=== PATIENT | male | born 1950 | race Caucasian/White ===

== ENCOUNTER 2016-11-24 08:21 | Inpatient (IN) | payer MEDICARE ==
--- NOTE | 2016-11-17 13:34 | NUR ---
JOINT CAMP: Patient attended [facility] joint camp, patient is having total knee replacement. Patient's DPOA is Yana Sweet [phone]. She will be his support upon arrival home and she will transport. Patient does not care for anyone else and [place]. Patient has never received home health services or Residential experience. Patient also has never been connected to outpatient physical therapy. Patient has bath bench and walker at home. Patient will need toilet riser and bedside commode.
[~2016-11-24] VITALS: Ht 185.4 cm; Wt 92.2 kg
[2016-11-24] VITALS (14 sets, daily range): BP systolic 109–128; BP diastolic 65–81; PULSE 56–73; RESP 12–19; O2SAT 94–100
[2016-11-24] MEDS: Vancomycin Inj 1,500 MG in 0.9% Sodium Chloride 500 ML IV SCH ×2 (06:00→08:50)
[~2016-11-24 08:21] MED LIST: CALC-140 PO; CeFAZolin 2 Gm/50 mL D5W IV Premix IV SCH; DILT120C86 PO; FLEC100T2 PO; GLUC1CAP8 PO; HYAL1CAP PO; Lactated Ringer's 1,000 ML IV SCH; NAPR220C16 PO; OMEG-38 PO; SERT50TA9 PO; TURM500C3 PO
[2016-11-24] MEDS ORDERED: Lactated Ringer's 1,000 ML IV ONE ×2 (08:22→12:48)
[2016-11-24] MEDS ORDERED: Magnesium Hydroxide 10 mL Oral Concentration PO PRN (10:00)
[2016-11-24] MEDS ORDERED: HYDROmorphone 0.5 mg/0.5 mL iSecure Syringe IVPUSH PRN (10:00)
[2016-11-24] MEDS ORDERED: Ondansetron 2 mg/mL 2 mL Inj IVPUSH PRN ×2 (10:00→11:40)
[2016-11-24] MEDS: 0.9% Sodium Chloride 1,000 ML IV SCH ×3 (10:00→20:00)
[2016-11-24] MEDS ORDERED: HYDROcodone-APAP 5-325 mg Tablet PO PRN (10:00)
[2016-11-24] MEDS ORDERED: Polyethylene Glycol (PEG) 17 Gm Powder PO PRN (10:00)
[2016-11-24] MEDS ORDERED: diphenhydrAMINE 25 mg Capsule PO PRN (10:00)
[2016-11-24] MEDS ORDERED: Acetaminophen IV 1,000 MG in IV Premix 1 EACH IV PRN ×2 (10:00→13:00)
[2016-11-24] MEDS ORDERED: Bupivacaine Liposome 1.3% 20 mL Inj INFILTRATE SCH (10:05)
[2016-11-24] MEDS ORDERED: Tranexamic Acid 100 mg/mL 10 mL Inj ONE ×2 (10:26)
[2016-11-24] MEDS ORDERED: 0.9% Sodium Chloride 100 ML ONE ×2 (10:26→10:27)
[2016-11-24] MEDS ORDERED: Bupivacaine Liposome 1.3% 20 mL Inj INFILTRATE ONE (11:17)
--- NOTE | 2016-11-24 11:17 | PCM.HPANE ---
Patient Data Date of Service: Nov 24, 2016 (0930) Surgeon Admitting Provider: Attending Provider:Ahsan Perea DO Primary Care Physician:Jb Baron MD Other Provider:Audrey Arzate Anesthesia Reason for Visit Left Knee Arthritis Ht/WT & BMI Height (Feet): 6 Height (Inches): 1.00 Weight (Kilograms): 88.3 Body Mass Index 25.00 Allergies Coded Allergies: benzocaine (Verified Allergy, Unknown, 11/20/16) Diabetes History Hx Diabetes?: No Medications Hypertension Medication: No Home Meds Incl Beta Ericka: No Reported Medications Turmeric Root Extract (Turmeric)500 Mg [id number] Mg PO BID 11/20/16 Sertraline HCl (Sertraline)50 Mg Jgksxn30 Mg PO DAILY 30 Days Ref 0 11/20/16 Naproxen Sodium 220 Mg Ndloxnt932 Mg PO BID PRN For Pain Ref 0 11/20/16 Hyalur AC/Chond Sul/Colg II/Aa (Hyaluronic Acid)1 Each Dvquotn06 Mg PO BID 11/20/16 Gluc [place]/MSM/Magnesium/Vit C (Glucosamine Complex-MSM Cap)1 Each Capsule1 Each PO BID 11/20/16 Flecainide Acetate 100 Mg Qpflmk100 Mg PO BID 11/20/16 [place]-3/Dha/Epa/Fish Oil (Fish Oil 1,000 mg Softgel)1 Each Capsule1 Each PO BID 11/20/16 Diltiazem ER 120 Mg Capsule.er120 Mg PO Q2DAY Ref 0 11/20/16 Calcium Carbonate/Vitamin D3 (Calcium + Vitamin D Tablet)1 Each Tablet1 Each PO DAILY 11/20/16 History History of ENT Problems?: No Hx of Heart Problems?: Yes Cardiovascular History: Positive for:: Atrial Fibrillation (paroxysmal) Irregular Heartbeat (PAF) Denies:: Hypertension Hx of Respiratory Problem?: Yes Respiratory History: Positive for:: Use of C-PAP Machine Hx Neurologic Problems?: No Hx of GI Problems?: No Hx of Problems?: No Hx Musculoskeletal Problems?: Yes Musculoskeletal History: Positive for:: Degenerative Joint Musculoskeletal Trauma (left knee current admission problem) Osteoarthritis Hx of Psycho/Social Problems?: Yes Psycho Social History: Positive for:: Hx Depression Hx Surgeries?: No (unknown) Hx Any Other Health Problems?: Yes Hx Diabetes: No Stop/Bang S-Snoring: Do You Snore Loudly: No T-Tired: feel tired, fatigued: No O-Obsered: Observed not breath: No P-Blood Pressure: treated: No B- Body Mass Index > 35 kg/m2: No A- Age over 50: Yes N- Neck Large Circumference: No G- Gender Male: Yes OLEGARIO Total Score: 2 Risk Assessment Category Category 1A: Patient has history of documented sleep apnea, and HAS NOT received any narcotic, sedative or anesthesia administration during this stay. Category 1B: Patient has history of documented sleep apnea, and HAS received any narcotic , sedative or anesthesia administration during this stay Category 2: Patient has SUSPECTED Obstructive Sleep Apnea, and HAS received any narcotic , sedative or anesthesia administration during this stay. Category 3: Patient has SUSPECTED Obstructive Sleep Apnea and HAS NOT received narcotic, sedative or anesthesia administration during this stay. Category 4: Outpatient in Procedural Areas with known sleep apnea or who screen positive for High Risk via the STOP/BANG questionnaire. Exam Exam Vital Signs Vital Signs Date Time Temp Pulse Resp B/P Pulse Ox O2 Delivery O2 Flow Rate FiO2 11/24/16 08:55 CPAP/BIPAP 11/24/16 08:54 36.3 56 16 125/81 99 Room Air General Appearance: Alert, Oriented X3, Cooperative, No Acute Distress HEENT/AIRWAY: MP 2 Lungs: Clear to Auscultation Heart: Exam Unremarkable Meds/Labs/Diagnostics Admission Meds Current Medications Vancomycin HCl 1500 mg/Sodium Chloride 500 ml @ 333.333 mls/hr PREOP IV Last administered on 11/24/16 08:50; Start 11/24/16 at 06:00; Stop 11/24/16 at 17:00 Lactated Ringer's (Lr) 1,000 ml @ ud STK-MED ONCE IV Last administered on 11/24 08:22; Start 11/24/16 at 08:22; Stop 11/24/16 at 08:23; Status DC Plan Impression Patient chart reviewed, patient interviewed and anesthestic plan with risks, benefits, and alternatives discussed, and informed consent obtained. NPO Status: 11/23 at 1900 ASA Physical Status: ASA2 Mod Systemic Disease Anesthetic Plan: Regional Block (fnb), SAB Bene/Risks/Altern/Consents: Yes HP Complete Prior to Induction: Yes Christ Herbert MD Nov 24, 2016 11:17
[2016-11-24] MEDS ORDERED: 0.9% Sodium Chloride 10 mL Inj INFILTRATE ONE (11:18)
[2016-11-24] MEDS ORDERED: Bupivacaine-MPF 0.5% W/EPI 30 mL Inj INFILTRATE ONE (11:19)
[2016-11-24] MEDS ORDERED: Lactated Ringer's 500 ML IV PRN (11:38)
[2016-11-24] MEDS ORDERED: Lactated Ringer's 1,000 ML IV SCH (11:38)
[2016-11-24] MEDS ORDERED: MetoCLOpramide 5 mg/mL 2 mL Inj IVPUSH PRN (11:40)
[2016-11-24] MEDS ORDERED: EPHEDrine Sulfate 50 mg/mL Inj IVPUSH PRN (11:40)
[2016-11-24] MEDS ORDERED: Phenylephrine 10,000 mCg/mL Inj IVPUSH PRN (11:40)
[2016-11-24] MEDS ORDERED: Dexamethasone 4 mg/mL Inj IVPUSH PRN (11:40)
[2016-11-24] MEDS ORDERED: HYDROmorphone 1 mg/mL Inj IVPUSH PRN (11:40)
[2016-11-24] MEDS ORDERED: fentaNYL-PF 50 mCg/mL 2 mL Inj IVPUSH PRN (11:40)
--- NOTE | 2016-11-24 13:53 | PCM.ANEP1 ---
Post Anesthesia Phase 1 PACU Phase 1 Assessment Date of Service: Nov 24, 2016 (4859) Vital Signs Vital Signs Date Time Temp Pulse Resp B/P Pulse Ox O2 Delivery O2 Flow Rate FiO2 11/24/16 13:45 36.4 64 18 117/65 94 Room Air 11/24/16 13:30 65 14 120/77 98 Room Air 11/24/16 13:25 65 13 122/70 98 Room Air 11/24/16 13:20 67 14 114/68 99 Room Air 11/24/16 13:15 67 18 123/69 100 Simple Mask 8 11/24/16 13:14 12 99 11/24/16 13:10 36.4 73 15 128/74 100 Simple Mask 8 11/24/16 08:55 CPAP/BIPAP 11/24/16 08:54 36.3 56 16 125/81 99 Room Air Anesthetic Administered: GA, Regional Block, SAB Level of Alertness: Awake, talking MCKAY's with Equal Strength: Yes Pain: No Nausea or Vomiting: No Oxygen Delivery: Room Air Lungs: Clear to Auscultation Dermatome Level: L3,4 (Thigh) Christ Herbert MD Nov 24, 2016 13:53
--- NOTE | 2016-11-24 13:54 | PCM.ANEP2 ---
Post Anesthesia Evaluation ASA/CMS Post Anesthesia VS in Patient's Normal Range?: Yes Resp Stable; Airway Patent?: Yes CV Function & Hydration Stable: Yes Mental Status Recovered?: Yes Pain control Satisfactory?: Yes N/V Control Satisfactory?: Yes Christ Herbert MD Nov 24, 2016 13:54
--- NOTE | 2016-11-24 14:14 | DRSVH ---
PROCEDURE: X-RAY LEFT KNEE, ONE OR TWO VIEWS ([id number]) INDICATIONS: 66 year-old male status post left knee joint replacement. TECHNIQUE: 2 postoperative view(s) of the knee acquired. COMPARISON: [facility], CR, XR KNEE ARTHRITIC SERIES LT, 10/22/2016, 12:54. FINDINGS: Bones: Patient is status post knee joint arthroplasty. Hardware components are in expected position s. Visualized bony structures are intact. Soft tissues: Overlying postoperative changes are noted, including intra-articular fluid and gas. IMPRESSION: Status post left knee arthroplasty, with hardware components in expected positions. Dictated by: Bruno Ontiveros M.D. on 11/24/2016 at 14:12 Approved by: Bruno Ontiveros M.D. on 11/24/2016 at 14:13
--- NOTE | 2016-11-24 14:24 | OP ---
[address] [address] OPERATIVE REPORT PATIENT: ANTON TREVIZO : 1950 MR#: [id number] ADMIT: 11/24/2016 JOB ID: [id number] DATE OF SURGERY: 11/24/2016 PREOPERATIVE DIAGNOSIS(ES): Left knee degenerative joint disease. POSTOPERATIVE DIAGNOSIS(ES): Left knee degenerative joint disease. PROCEDURE: Left total knee arthroplasty. SURGEON: Ahsan Perea D.O. ALCOHOLISM WORKER: Kassandra Elkins PA-C. ANESTHESIA: Spinal with general and nerve block. INDICATIONS: The patient is a 66-year-old male with left knee severe degenerative arthritis with failed conservative measures and wished to proceed with a left total knee arthroplasty. We discussed risks, benefits, and possible complications of surgery. All questions were answered and he wished to proceed. A assembler surgical garment was required for the successful completion of this procedure. PROCEDURE IN DETAIL: The patient is brought to the operating room. He was given a preoperative antibiotic and 1 g TXA preop. He is given an adductor canal block as well as a spinal. However, he continued to have motor control of his leg and seemed to have some restless leg type symptoms despite the spinal and he was, therefore, converted to a general anesthetic. A time-out was performed and the left knee was sterilely prepped and draped. A tourniquet was used for hemostasis. An incision was made longitudinally over the anteromedial knee and dissection was carefully carried through the subcutaneous tissue. Electrocautery was used for hemostasis. A split was then made in the quad tendon leaving a cuff of tissue for repair. This was taken along the medial retinaculum and the proximal medial tibial face. A small portion of the fat pad was removed and the patella was then everted. The femur was then instrumented with the intramedullary drill and then a guide everett with a 5 degree distal valgus cut angle was chosen and 10 mm was planned for resection. The block was pinned into position. The cut was performed the next the tibia was addressed and an extramedullary tibial cutting guide was placed parallel to the long axis of the tibia, pinned into position and then the tibial cut was performed complete with an osteotome. The femur was then sized, and felt to be a size 8. When the 3 degree external rotation guide was placed and pins were placed, the distal femoral cuts were then completed and the tibia was sized, felt to be a size 7. The notch cut was then made using the notch cutting guide template and the knee was then trialed we trialed with a 5, 6, 7, 8 and 10 polys and did some additional medial release as he was quite tight medially, ultimately deciding on the 8 poly with a rotating platform. The tibia was drilled and punched. The femur was drilled the patella was resurfaced with a free hand type technique, cut from initial thickness of 30 to a thickness of 16. A 41 mm patellar button was drilled for and trialed, had excellent tracking. All bony surfaces were washed and dried, and the components were then cemented into position beginning with the [employer] rotating platform 7 tibia followed by the [employer] posterior stabilized 8 femur and an 8 mm thickness poly with a 41 mm patellar button. All excess cement was removed. The knee was held in full extension while the cement was allowed to polymerize. The tourniquet was then let down and a second gram of TXA was infused. Electrocautery was used for hemostasis. The wound was copiously irrigated and then closed with #1 Surgilon to repair the quad tendon and medial retinaculum. The remainder of the retinaculum was repaired with 0-Vicryl. A mixture of Exparel, saline and Marcaine with epi was injected posteriorly into the capsule as well as into the soft tissues anteriorly in the knee. The subcu was closed with 2-0 Vicryl and the skin was closed with a running 3-0 V lock suture. Sterile dressings were applied. Patient tolerated the procedure well. Blood loss was 150 cc. POSTOPERATIVE PROTOCOL: Have the patient weightbear to tolerance. Use a walker for ambulation. Will use Lovenox for DVT prophylaxis and he was given a prescription for both [place] and Percocet as he has had luck with one during the day and one for nighttime use.
[2016-11-24] MEDS: Sodium Chloride LOK Flush 10 mL Syringe IV SCH (16:30)
[2016-11-24] MEDS ORDERED: Bupiv-Spinal 0.75%/Dex 8.25% 2 mL Inj ONE (17:46)
[2016-11-24] MEDS ORDERED: Propofol 10,000 mCg/mL 20 mL Inj ONE (17:46)
[2016-11-24] MEDS ORDERED: EPHEDrine/NS 5 mg/mL 5 mL Syringe ONE (17:46)
[2016-11-24] MEDS ORDERED: Ondansetron 2 mg/mL 2 mL Inj ONE (17:46)
[2016-11-24] MEDS ORDERED: fentaNYL-PF 50 mCg/mL 2 mL Inj ONE (17:46)
--- NOTE | 2016-11-24 19:28 | NUR ---
Arrival to Floor Patient arrived to floor alert and oriented. Patient states that pain is within tolerable level. Patient has good capillary refill to surgical site, sensation throughout effected extremity, good dorsal pulse, able to move toes and surgical dressing clean, dry and intact. Ordered fluids hung, SCDs placed on patient. Ice applied to knee. Patient denies nausea, able to tolerate dinner well. Care is ongoing.
[2016-11-24] MEDS: Senna-Docusate 8.6-50 mg Tablet PO SCH (20:30)
[2016-11-24] MEDS: CeFAZolin Inj 2 GM in Dextrose 5% 50 ML IV SCH (20:34)
[2016-11-24] MEDS: HYDROcodone-APAP 7.5-325 mg Tablet PO PRN (22:42)
[2016-11-24] MEDS: Diltiazem CD 120 mg ER24 Capsule PO SCH (23:22)
[2016-11-25] MEDS: Sodium Chloride LOK Flush 10 mL Syringe IV SCH ×4 (00:27→19:51)
[2016-11-25 00:35] VITALS: BP 104/64; PULSE 71; RESP 16; O2SAT 96
[2016-11-25] MEDS: HYDROcodone-APAP 7.5-325 mg Tablet PO PRN (02:00)
--- NOTE | 2016-11-25 02:17 | NUR ---
pain / activity patient moving very well. able to ambulate to the restroom with fww sba. excellent cms to left leg. minimal discomfort to left knee. patient complains of left hip discomfort. rates 4 medicated with hyrocodone as documented. given ice pack care ongoing.
[2016-11-25] MEDS: CeFAZolin Inj 2 GM in Dextrose 5% 50 ML IV SCH (02:41)
[2016-11-25 04:21] VITALS: BP 110/72; PULSE 75; RESP 16; O2SAT 95
[2016-11-25] MEDS: hydrOXYzine Pamoate 25 mg Capsule PO PRN ×3 (05:38→20:45)
[2016-11-25] MEDS: Ketorolac 15 mg/mL Inj IVPUSH PRN ×2 (05:39→22:24)
[2016-11-25] MEDS: oxyCODONE-Acetamin 5-325 mg Tablet PO PRN ×4 (05:39→20:45)
[2016-11-25] MEDS ORDERED: CeFAZolin Inj 2 GM in IV Premix 1 EACH IV ONE (06:00)
[2016-11-25] MEDS: 0.9% Sodium Chloride 1,000 ML IV SCH ×2 (06:00→14:37)
[2016-11-25 07:18] LABS: BASOPHILS % (AUTO) 0.1 % (0-3); EOSINOPHILS % (AUTO) 0.1 % (0-5); MONOCYTES % (AUTO) 9.1 % (4-12); Mean Corpuscular Hemoglobin 28.5 pg (27.0-35.0); Mean Corpuscular Volume 83.7 fL (81-100); NEUTROPHILS % (AUTO) 85.6 % (40-74); Platelet Count 201 bil/L (150-400)
[2016-11-25] MEDS ORDERED: Influenza (Adult) Vaccine 0.5 mL Syringe IM ONE (08:30)
[2016-11-25 09:33] VITALS: BP 94/56; PULSE 72
[2016-11-25] MEDS: Senna-Docusate 8.6-50 mg Tablet PO SCH ×2 (09:36→19:50)
--- NOTE | 2016-11-25 09:57 | NUR ---
Evaluation completed. Please go to "Notes" then click on "Assessments and Notes" (bottom left corner of screen). Then select appropriate discipline tab on top of screen.
--- NOTE | 2016-11-25 10:33 | PCM.PNORTH ---
Subjective Date of Service: Nov 25, 2016 Visit Information: Reason for Visit Left Knee Arthritis Surgery/Surgery Date Post-Op Day # Date of Admission: Nov 24, 2016 at 17:45 Hospital Day # Subjective s/p day 1 left total knee arthroplasty. Patient states he is doing really well and happy with his pain control. Optimistic about moving with physical therapy and happy with his surgery. Postop General: No Complaints, No Shortness of Breath, No Chest Pain Objective Exam Objective Patient is alert and oriented 3. Answering questions appropriately. Sitting up in bed and not in any acute distress today. Dressing is clean dry and intact. Patient able to wiggle toes. Calf is soft and non-tender, pulses intact, sensation is full. Vital Signs and I/O Vital Sign - Last Date Time Temp Pulse Resp B/P Pulse Ox O2 Delivery O2 Flow Rate FiO2 11/25/16 09:33 72 94/56 11/25/16 04:21 36.6 16 95 Room Air 11/24/16 13:15 8 Intake and Output 11/24/16 11/24/16 11/25/16 Cumulative From/Thru 15:00 23:00 07:00 11/20/16 10:03 - 11/25/16 06:04 Intake Total 2260 ml 400 ml 1672 ml 4332 ml Output Total 150 ml 0 ml 1200 ml 1350 ml Balance 2110 ml 400 ml 472 ml 2982 ml Intake Oral 400 ml 600 ml 1000 ml IV Total 2260 ml 1072 ml 3332 ml Output Urine Total 0 ml 1200 ml 1200 ml Estimated Blood Loss 150 ml 150 ml # Bowel Movements 0 0 Lab & Micro Results Laboratory Tests Test 11/25/16 06:16 11/25/16 06:46 Sodium Level 139mEq/L (134-144) Potassium Level 4.0mEq/L (3.5-5.2) Chloride Level 102mEq/L (97-108) Carbon Dioxide Level 23mmol/L (18-29) Blood Urea Nitrogen 17mg/dL (8-27) Creatinine 0.97mg/dL (0.76-1.27) Estimat Glomerular Filtration Rate 82mL/min (>59) Glucose Level 112mg/dL (60-99) Calcium Level 8.9mg/dL (8.5-10.1) White Blood Count 11.0th/mm3 (3.8-10.1) Red Blood Count 4.11mil/mm3 (4.40-5.80) Hemoglobin 11.7g/dL (13.8-17.2) Hematocrit 34.4% (41.0-50.0) Mean Corpuscular Volume 83.7fL (81-100) Mean Corpuscular Hemoglobin 28.5pg (27.0-35.0) Mean Corpuscular Hemoglobin Concent 34.0% (32.0-37.0) Red Cell Distribution Width 15.0% (12.3-15.4) Platelet Count 201bil/L (150-400) Neutrophils (%) (Auto) 85.6% (40-74) Lymphocytes (%) (Auto) 4.8% (14-46) Monocytes (%) (Auto) 9.1% (4-12) Eosinophils (%) (Auto) 0.1% (0-5) Basophils (%) (Auto) 0.1% (0-3) Result Diagram: 11/25/16 0646 11/25/16 0616 Assessment & Plan Impression Status post day #1 left totally arthroplasty. Patient doing very well. Pain well controlled. Problems: Plan Patient will continue to work with physical therapy. Patient will remain weightbearing as tolerated. Patient will take Lovenox 40 mg subcutaneous daily for 14 days, then transition to aspirin 325 mg twice a day for 4 more weeks for DVT prophylaxis. Patient will utilize hydrocodone and/or oxycodone for pain control while here in the hospital and will be discharged with pain medicine as patient has done well with one at night and the other in the daytime in the past. Dressing will be changed tomorrow by RAFAELA. Anticipate that patient will stay in the hospital for 1 to possibly 2 more days and be discharged home as soon as ambulating well with physical therapy. Cornell Danielson PA-C Nov 25, 2016 10:33
--- NOTE | 2016-11-25 11:26 | NUR ---
Social Work-initial assessment/ readiness for discharge: Data:See initial assessment. Pt is a 66 y/o male who was admitted on 11/24/16 for left knee per H&P. Pt's insurance is [employer] and PCP is Jb Baron MD. EMR reviewed. Pt's readmission score is 2. SW met with pt and Yana at bedside, SW role explained. Pt is alert and oriented x3. Pt resides at home with his in [place] where he remains independent with ADLs. Pt drives and does not normally use any DME. Pt has fww for home use. Pt has no HH or SNF history. Pt has no jail care or VA benefits. SW discussed DPOA/ advanced directive, pt and state they have completed this. PT has seen pt and recommended home with outpt PT services.Pt has outpt PT all set up. Pt's to provide transport home. No anticipated discharge needs. SW will continue to follow if needs arise. Assessment:Pt who would benefit from outpt PT. Plan:Pt to discharge home when medically stable via POV. Pt to have outpt PT services. No anticipated discharge needs. SW will continue to follow if needs arise. OMI Landeros Addendum: 11/25/16 at 1223 by AKIL MARI Amended: Links added.
--- NOTE | 2016-11-25 11:57 | NUR ---
Evaluation completed. Please go to "Notes" then click on "Assessments and Notes" (bottom left corner of screen). Then select appropriate discipline tab on top of screen.
[2016-11-25 13:46] VITALS: BP 117/73; PULSE 69; RESP 16; O2SAT 96
--- NOTE | 2016-11-25 18:17 | NUR ---
Pain/activity Rates pain 3-4/10 and medicated with 5/325 Percocet q 4hr prn with good effect. 25 mg Vistaril also given prn for breakthrough and spasms. Cleared by PT for independent ambulation in room. Also walked in hallway with PT.
[2016-11-25 19:40] VITALS: BP 116/70; PULSE 75; RESP 18; O2SAT 92
[2016-11-25] MEDS: Diltiazem CD 120 mg ER24 Capsule PO SCH (19:50)
[2016-11-25 21:19] LABS: APPEARANCE,URINE CLEAR (CLEAR,HAZY); COLOR,URINE YELLOW (YELLOW); OCCULT BLOOD,URINE NEGATIVE (NEGATIVE); PH,URINE 6.5 (5.0-8.0); UROBILINOGEN,URINE NORMAL (NORMAL)
[2016-11-26] MEDS: oxyCODONE-Acetamin 5-325 mg Tablet PO PRN ×3 (01:05→17:25)
[2016-11-26] MEDS: hydrOXYzine Pamoate 25 mg Capsule PO PRN ×4 (01:05→17:25)
--- NOTE | 2016-11-26 01:18 | NUR ---
incisional pain Rated 2 after 1 Perocet, Visteril 25mg, and Toradol. Able to get OOB independently and walk to bathroom with minimal SBA. VSS, no acute changes overnight.
[2016-11-26] MEDS: 0.9% Sodium Chloride 1,000 ML IV SCH ×2 (02:00→12:00)
[2016-11-26 05:15] VITALS: BP 120/71; PULSE 70; RESP 16; O2SAT 95
[2016-11-26 05:53] LABS: BASOPHILS % (AUTO) 0.4 % (0-3); EOSINOPHILS % (AUTO) 1.4 % (0-5); MONOCYTES % (AUTO) 16.1 % (4-12); Mean Corpuscular Hemoglobin 28.1 pg (27.0-35.0); Mean Corpuscular Volume 84.6 fL (81-100); Platelet Count 151 bil/L (150-400)
[2016-11-26 07:38] VITALS: BP 124/76; PULSE 70; RESP 16; O2SAT 95
--- NOTE | 2016-11-26 07:46 | PCM.PNORTH ---
Subjective Date of Service: Nov 26, 2016 Visit Information: Reason for Visit Left Knee Arthritis Surgery/Surgery Date Post-Op Day # Date of Admission: Nov 24, 2016 at 17:45 Hospital Day # Subjective Found patient awake and alert this morning and sitting up in bed. No complaints of pain at this time. Discussed discharge today after sterile training with formal physical therapy and patient is planning on this. Patient has participated well with therapy yesterday and has arranged his formal physical therapy to begin next week. I discussed mobility with the patient and encouraged him to keep knee extended and work on knee flexion as well. I also encouraged him to perform foot pumps while in bed when he can remember to do this. Postop General: No Complaints, No Shortness of Breath, No Chest Pain Pain Management: PO Objective Exam Objective Alert and oriented 3. Interoperative dressing clean dry and intact. Intraoperative dressing is removed and ABDs and fishnet dressing is replaced. Wound is found to be in good condition with no focal erythema or swelling. Calf and thigh are soft and nontender. Toe wiggle and sensation are intact at the left lower extremity distally. Castellano is absent Gait 75-100 feet with physical therapy on 11/25/2016 with recommendation for discharge to home after stair training. Vital Signs and I/O Vital Sign - Last Date Time Temp Pulse Resp B/P Pulse Ox O2 Delivery O2 Flow Rate FiO2 11/26/16 05:15 37.2 70 16 120/71 95 Room Air 11/24/16 13:15 8 Intake and Output 11/25/16 11/25/16 11/26/16 Cumulative From/Thru 15:00 23:00 07:00 11/20/16 10:03 - 11/26/16 05:23 Intake Total 1320 ml 500 ml 6152 ml Output Total 1700 ml 1500 ml 4550 ml Balance -380 ml -1000 ml 1602 ml Intake Oral 1320 ml 500 ml 2820 ml IV Total 3332 ml Output Urine Total 1700 ml 1500 ml 4400 ml Estimated Blood Loss 150 ml # Bowel Movements 0 0 Lab & Micro Results Laboratory Tests Test 11/25/16 20:46 11/26/16 05:37 Urine Color Yellow (YELLOW) Urine Appearance Clear (CLEAR,HAZY) Urine pH 6.5 (5.0-8.0) Urine Specific [place] 1.004 (1.003-1.035) Urine Protein Negativemg/dL (NEG,TRACE) Urine Glucose (UA) Negativemg/dL (NEGATIVE) Urine Ketones Negativemg/dL (NEGATIVE) Urine Occult Blood Negative (NEGATIVE) Urine Nitrite Negative (NEGATIVE) Urine Bilirubin Negative (NEGATIVE) Urine Urobilinogen Normalmg/dL (NORMAL) Urine Leukocyte Esterase Negative (NEGATIVE) Urine RBC 0-2/hpf (0-2) Urine WBC 0-5/hpf (0-5) Urine Epithelial Cells Occasional/hpf (NONE-MOD) Urine Crystals None seen (NONE SEEN) Urine Bacteria None/hpf (NONE-FEW) Urine Hyaline Casts None/lpf (NONE) Urine Granular Casts None seen (NONE SEEN) Urine Waxy Casts None seen (NONE SEEN) Urine Red Blood Cell Casts None seen (NONE SEEN) Urine White Blood Cell Casts None seen (NONE SEEN) Urine Mucus None seen (None Seen) Urine Trichomonas None seen (NONE SEEN) Urine Yeast None (NONE SEEN) Urinalysis Comment None Urine Culture Reflexed Not indicated White Blood Count 4.9th/mm3 (3.8-10.1) Red Blood Count 3.95mil/mm3 (4.40-5.80) Hemoglobin 11.1g/dL (13.8-17.2) Hematocrit 33.4% (41.0-50.0) Mean Corpuscular Volume 84.6fL (81-100) Mean Corpuscular Hemoglobin 28.1pg (27.0-35.0) Mean Corpuscular Hemoglobin Concent 33.2% (32.0-37.0) Red Cell Distribution Width 15.2% (12.3-15.4) Platelet Count 151bil/L (150-400) Neutrophils (%) (Auto) 69.0% (40-74) Lymphocytes (%) (Auto) 12.9% (14-46) Monocytes (%) (Auto) 16.1% (4-12) Eosinophils (%) (Auto) 1.4% (0-5) Basophils (%) (Auto) 0.4% (0-3) Sodium Level 139mEq/L (134-144) Potassium Level 4.2mEq/L (3.5-5.2) Chloride Level 103mEq/L (97-108) Carbon Dioxide Level 25mmol/L (18-29) Blood Urea Nitrogen 19mg/dL (8-27) Creatinine 1.01mg/dL (0.76-1.27) Estimat Glomerular Filtration Rate 78mL/min (>59) Glucose Level 99mg/dL (60-99) Calcium Level 8.8mg/dL (8.5-10.1) Result Diagram: 11/26/1653611/26/16536 General Appearance: Alert, Oriented X3, Cooperative, No Acute Distress Extremities: No Compartment Syndrom Noted, Thigh & Calf Soft/Nontender Postop Sensory Motor: Distal Motor Intact, Movement in Toes, Distal Sensation Intact Activity: Activity per PT, Ambulate with PT (weightbearing as tolerated on the left lower extremity using a front wheeled walker) Catheters: None Assessment & Plan Impression Patient is a 66-year-old male who has undergone a left total knee arthroplasty on 11/24/2016. He is doing well and performing with physical therapy appropriately. He has no complaints at this time and has arranged his postop therapy and follow-up appointments. Problems: Plan Postop day #2 from left total knee arthroplasty performed on 11/24/[address] Ahsan Aviles. Weightbearing as tolerated on the left lower extremity using front-wheeled walker. Continue formal physical therapy for mobility, gait and safety. Patient has arranged outpatient therapy to begin next week. Continue by mouth pain medication with Percocet and [place] and Vistaril. All medication Rx's in chart. Continue Lovenox 40 mg subcutaneous daily 2 weeks postop with transition to ASA 325 mg EC by mouth twice a day times and additional 4 weeks postop totaling 6 weeks postoperative DVT prophylaxis. Nursing please measure and fit bilateral thigh-high RORO hose as ordered this morning. Nursing please discontinue any IV pain medication today in anticipation of discharge. Keep left knee dressings clean dry and intact. Patient may shower in 3-4 days postop if wound has been dry for 24 hours. Do not submerge left knee and hot tobacco or pool. Other than hygiene and dressing change as needed knee should be covered until seen in office in 2 weeks. Follow-up in 2 weeks at [facility] orthopedic clinic with mid-level provider on prearranged appointment for wound check and suture removal. Follow-up in 6 weeks at [facility] orthopedic clinic with Dr. Ahsan Perea with left knee two-view x-rays on arrival. Discharge patient home today on postop day #2, 11/26/2016 after physical therapy has cleared for gait and stair training. VTE Prophylaxis: Sub-Q Enoxaparin (Lovenox 40 mg subcutaneous daily 2 weeks postop with transition to ASA 325 mg twice a day by mouth 4 weeks totaling 6 weeks DVT prophylaxis postop.), TRISHs, RORO Barker, Guero Valero PA-C Nov 26, 2016 07:45
--- NOTE | 2016-11-26 07:54 | PCM.DIORTH ---
Ortho Discharge Instruction Date of Service: Nov 26, 2016 Dates of Hospitalization Date of Hospital Admission Nov 24, 2016 at 17:45 Providers Admitting Physician: Ahsan Perea DO Primary Care Physician: Jb Baron MD Attending Physician: Ahsan Perea DO Diet Discharge Diet: No restrictions Activity Discharge Activity-General: Try not to overdue, Be up and about, Balance rest and activity, Ice incision 3-5 time/day for 20min, Activity as pain allows, Activity as energy allows, No driving while taking narcotic Left Lower Extremity: Weight Bearing as tolerated Discharge Assist Device: Front Wheeled Walker Dressing and Incisional Care Discharge Dressing Care: Keep dressing clean, dry & intact, Change soiled dressing Discharge Hygiene: May shower after (patient may shower wound in 3-4 days it has been dry for 24 hours. Otherwise keep the wound covered until seen in office in 2 weeks.), DO NOT soak incision under water, NO bathtub, hot tub or whirlpool Additional Instructions Discharge Instructions Postop day #2 from left total knee arthroplasty performed on 11/24/[address] Ahsan Aviles. Weightbearing as tolerated on the left lower extremity using front-wheeled walker. Continue formal physical therapy for mobility, gait and safety. Patient has arranged outpatient therapy to begin next week. Continue by mouth pain medication with Percocet and [place] and Vistaril. All medication Rx's in chart. Continue Lovenox 40 mg subcutaneous daily 2 weeks postop with transition to ASA 325 mg EC by mouth twice a day times and additional 4 weeks postop totaling 6 weeks postoperative DVT prophylaxis. Nursing please measure and fit bilateral thigh-high RORO hose as ordered this morning. Nursing please discontinue any IV pain medication today in anticipation of discharge. Keep left knee dressings clean dry and intact. Patient may shower in 3-4 days postop if wound has been dry for 24 hours. Do not submerge left knee and hot tobacco or pool. Other than hygiene and dressing change as needed knee should be covered until seen in office in 2 weeks. Follow-up in 2 weeks at [place] [facility] with mid-level provider on prearranged appointment for wound check and suture removal. Follow-up in 6 weeks at [facility] with Dr. Ahsan Perea with left knee two-view x-rays on arrival. Discharge patient home today on postop day #2, 11/26/2016 after physical therapy has cleared for gait and stair training. Follow Up Plan Follow Up Plan Patient will be seen at 2 weeks, 6 weeks and 12 weeks postoperatively. Patient will be seen when necessary in the interim. Follow-up Provider (F9): Ahsan Perea DO Mid-level Provider (F9): Kassandra Elkins PA-C Follow-up appointment: Weeks (Patient will be seen at 2 weeks, 6 weeks and 12 weeks postoperatively. Patient will be seen when necessary in the interim.) Call your provider for: Fever, Chills, Shortness of breath, Vomitting, Drainage at incision Guero Barker PA-C Nov 26, 2016 07:54
[2016-11-26] MEDS: Senna-Docusate 8.6-50 mg Tablet PO SCH (07:55)
[2016-11-26] MEDS ORDERED: Hydrocodone/Acetaminophen PO (07:58)
[2016-11-26] MEDS ORDERED: ENOX40DI8 SUBQ (07:58)
[2016-11-26] MEDS ORDERED: OXYC1TAB24 PO (07:58)
--- NOTE | 2016-11-26 08:00 | PCM.DC.ORT ---
Discharge Summary Date of Service: Nov 26, 2016 Date of Hospital Admission: Nov 24, 2016 at 17:45 Date of Surgery: Nov 24, 2016 Date of Discharge: Nov 26, 2016 Reason for Hospitalization: Severe left knee osteoarthritis Procedures Performed: Left total knee arthroplasty Hospital Course: Patient was admitted to the hospital on 11/24/2016 through the preoperative care unit and upon processing was taken to the operating room where his procedure was performed without incident. Patient was awakened from anesthesia and taken to the postoperative care unit and upon recovery from anesthesia and was transferred to the orthopedic care unit where he participated well with formal physical therapy and received a recommendation for discharge to home. Problems: (1) Arthritis of knee Status: Acute ICD Code: M19.90 Disposition: Discharged to home Orthopedic Follow up Plan: In Two Weeks in my clinic (Patient will be seen at 2 weeks, 6 weeks and 12 weeks postoperatively. Patient will be seen when necessary in the interim.) Discharge Instructions: Postop day #2 from left total knee arthroplasty performed on 11/24/[address] Ahsan Aviles. Weightbearing as tolerated on the left lower extremity using front-wheeled walker. Continue formal physical therapy for mobility, gait and safety. Patient has arranged outpatient therapy to begin next week. Continue by mouth pain medication with Percocet and [place] and Vistaril. All medication Rx's in chart. Continue Lovenox 40 mg subcutaneous daily 2 weeks postop with transition to ASA 325 mg EC by mouth twice a day times and additional 4 weeks postop totaling 6 weeks postoperative DVT prophylaxis. Nursing please measure and fit bilateral thigh-high RORO hose as ordered this morning. Nursing please discontinue any IV pain medication today in anticipation of discharge. Keep left knee dressings clean dry and intact. Patient may shower in 3-4 days postop if wound has been dry for 24 hours. Do not submerge left knee and hot tobacco or pool. Other than hygiene and dressing change as needed knee should be covered until seen in office in 2 weeks. Follow-up in 2 weeks at [facility] orthopedic clinic with mid-level provider on prearranged appointment for wound check and suture removal. Follow-up in 6 weeks at [facility] orthopedic clinic with Dr. Ahsan Perea with left knee two-view x-rays on arrival. Discharge patient home today on postop day #2, 11/26/2016 after physical therapy has cleared for gait and stair training. Management Plan: Patient will be seen at 2 weeks, 6 weeks and 12 weeks postoperatively. Patient will be seen when necessary in the interim. ([Hydrocodone/Acetaminophen]) 1 TABLET TABLET 1-2 TABLET PO Q4-6H PRN PRN For Moderate Pain Calcium Carbonate/Vitamin D3 (Calcium + Vitamin D Tablet) 1 Each Tablet 1 EACH PO DAILY Diltiazem ER (Diltiazem ER) 120 Mg Capsule.er 120 MG PO Q2DAY Enoxaparin Sodium (Enoxaparin Sodium) 40 Mg/0.4 Ml Syringe 40 MG SUBQ Q24 Flecainide Acetate (Flecainide Acetate) 100 Mg Tablet 100 MG PO BID Gluc [place]/MSM/Magnesium/Vit C (Glucosamine Complex-MSM Cap) 1 Each Capsule 1 EACH PO BID Hyalur AC/Chond Sul/Colg II/Aa (Hyaluronic Acid) 1 Each Capsule 40 MG PO BID Sertraline HCl (Sertraline) 50 Mg Tablet 50 MG PO DAILY oxyCODONE-Acetaminophen 5-325 mg (oxyCODONE-Acetaminophen 5-325 mg) 1 Each Tablet 1-2 TAB PO Q4-6H PRN PRN For Pain Guero Barker PA-C Nov 26, 2016 08:00
[2016-11-26] MEDS: Sodium Chloride LOK Flush 10 mL Syringe IV SCH ×2 (08:40→16:30)
[2016-11-26] MEDS: HYDROcodone-APAP 7.5-325 mg Tablet PO PRN ×2 (08:40→12:55)
--- NOTE | 2016-11-26 09:09 | DRSVH ---
PROCEDURE: US VEINOUS LEG DUPLEX UNILATERAL, LEFT INDICATIONS: left posterior calf pain TECHNIQUE: Real-time imaging, as well as color and pulse Doppler interrogation, were performed of the lower extr emity deep veins from the inguinal ligament to the popliteal fossa. COMPARISON: None. FINDINGS: The deep veins are normally compressible, and free of intraluminal thrombus. Color and pu lse Doppler demonstrate normal phasic intraluminal flow. There is normal augmentation response to di stal compression maneuver. IMPRESSION: 1. No evidence of deep venous thrombosis in the left lower extremity. Dictated by: Lonnie Rivera M.D. on 11/26/2016 at 9:06 Approved by: Lonnie Rivera M.D. on 11/26/2016 at 9:07
--- NOTE | 2016-11-26 12:22 | NUR ---
Social Work- Discharge Data: EMR review. Pt is on day 2 of hospitalization for left knee per H&P. Pt to discharge today. PT has seen pt and recommended home with outpt PT services. Pt has outpt PT all set up. Pt's to provide transport home. No discharge needs. Assessment:Pt who would benefit from outpt PT. Plan:Pt to discharge home when medically stable via POV. Pt to have outpt PT services. No discharge needs. Juliette Rodriguez MSW
[2016-11-26 14:10] VITALS: BP 117/75; PULSE 77; RESP 18; O2SAT 96
[2016-11-26] MEDS ORDERED: 0.9% Sodium Chloride 500 ML IV ONE (15:00)
--- NOTE | 2016-11-26 18:05 | NUR ---
DISCHARGE Patient discharged at 1815, left with who will drive him home. Patient denies pain at rest, nausea and shortness of breath. IV catheter removed intact, medications reviewed and new Rx's provided. Follow up instructions and care notes given, patient verbalizes understanding. Extra dressing supplies given, dressing c/d/i, tet hose also provided.
== END 2016-11-26 18:15 | disposition home or self-care (01) | DRG 470 ==
LOC: SAS 08:21 → OSC 17:45
PROVIDERS: ADMIT Orthopaedic Surgery; ATTEND Orthopaedic Surgery
PROC: 0SRD0J9 Replacement of Left Knee Joint with Synthetic Substitute, Cemented, Open Approach (ICD-10-PCS; principal; 2016-11-24 10:15)
DX: M17.12 Unilateral primary osteoarthritis, left knee (principal)